=== PATIENT | female | born 1965 | race Caucasian/White ===

== ENCOUNTER 2016-07-31 08:13 | Day surgery (SDC) | payer OTHER ==
[~2016-07-31] VITALS: Ht 147.3 cm; Wt 62.4 kg
[2016-07-31 09:07] VITALS: Ht 147.3 cm; Wt 62.4 kg
[2016-07-31] MEDS ORDERED: no home meds (09:10)
[2016-07-31] MEDS ORDERED: LIDOCAINE 4% SOLUTION 50 ML BTL ONE (09:41)
[2016-07-31 09:47] VITALS: BP 131/71; PULSE 77; RESP 13
[2016-07-31] MEDS ORDERED: FENTAnyl 50 MCG/ML VIAL ONE (10:35)
[2016-07-31] MEDS ORDERED: MIDAZOLAM 1 MG/ML 2 ML INJ ONE ×2 (10:35→10:36)
[2016-07-31 10:50] VITALS: BP 99/67; RESP 20
--- NOTE | 2016-07-31 11:42 | GILP ---
DATE OF PROCEDURE: 07/31/2016 PROCEDURE: Esophagogastroduodenoscopy. PREOPERATIVE DIAGNOSIS: Patient presenting with history of abdominal pain unresponsive to routine t herapy. Patient has been on omeprazole. Rule out peptic ulcer disease, malignancy, etc. POSTOPERATIVE DIAGNOSES: Diffuse gastritis of moderate degree. There is a paucity of the folds no alejandra in the fundus, indicating inflammatory process causing effacement of the folds. Biopsies were o btained. DESCRIPTION OF PROCEDURE: After the informed written consent was obtained, the patient was given 2 mg Versed and 50 mg of Versed as intravenous anesthesia. When the patient became somnolent, the Olympus video upper endoscope was introduced into the orophar ynx, then into the esophagus. Esophagus appeared normal with no mucosal abnormality. Scope at this time was advanced into the stomach. Stomach showed evidence of diffuse moderate degree of gastriti s. Some of the folds appeared to be thick in the fundus, some of them are nodular, some folds disap peared because of the inflammation process. Multiple random biopsies were obtained to rule out malt lymphoma. Also, biopsy was done from the antrum, the lesser curvature and the fundus to rule out H . pylori infection. Mucosa of the duodenum appeared normal up to the end of the third portion of th e duodenum. Scope at this time was withdrawn and no additional abnormalities detected and the proce dure was terminated. PLAN: Recommend wait for the pathology report. Dictated By: MATTEO FERGUSON/EDILSON Conf#: [id number] DID#: [id number] CC: MATTEO GORDON MD; FERMIN SHAH;*EndCC*
--- NOTE | 2016-07-31 11:50 | GILP ---
DATE OF PROCEDURE: 07/31/2016 NAME OF PROCEDURE: Colonoscopy and polypectomy and biopsy. PREOPERATIVE DIAGNOSIS: Chronic diarrhea, rule out microscopic colitis, inflammatory bowel disease, colorectal neoplasm. POSTOPERATIVE DIAGNOSES: 1. A 6 mm polyp noted on a stalk in the proximal ascending colon. Hot polypectomy was performed by using the hot snare. 2. Random biopsies were obtained from the descending colon to rule out microscopic colitis. DESCRIPTION OF PROCEDURE: After the informed written consent was obtained, the patient was asked to lie on the left lateral side, 3 mg Versed and 50 mcg of fentanyl was given as intravenous anesthesi a. When the patient became somnolent, the Olympus video colonoscope was introduced into the rectum and scope was advanced all the way to the cecum. At about proximal ascending colon there is evidence of a 5 to 6 mm polyp noted on a stalk. Hot snare was used and polypectomy was performed. Polyp was r etrieved and sent for histopathology. Rest of the colon appeared normal. Random biopsies were obta ined in the descending colon to rule out microscopic colitis. Scope at this time was withdrawn and minimal internal hemorrhoids were noted and the procedure was terminated. PLAN: Recommend wait for the pathology report. Dictated By: MATTEO FERGUSON/EDILSON Conf#: [id number] DID#: [id number] CC: MATTEO GORDON MD; FERMIN SHAH;*[facility]*
== END 2016-07-31 13:29 | disposition home or self-care (01) ==
LOC: GIL 08:13
PROVIDERS: ATTEND Internal Medicine Gastroenterology
DX: Z12.11 Encounter for screening for malignant neoplasm of colon (principal); K29.30 Chronic superficial gastritis without bleeding; D12.2 Benign neoplasm of ascending colon; D12.7 Benign neoplasm of rectosigmoid junction
CPT/HCPCS: 43239; 45380; 84703; 88305; 88312; J2250; J3010; Z7610